=== PATIENT | male | born 1980 | race African-American/Black ===

== ENCOUNTER 2025-04-01 09:47 | Outpatient (REF) | payer OTHER, SELFPAY ==
[2025-04-01 13:29] LABS: MANUAL DIFF FLAG NO
[2025-04-01 13:38] LABS: Hematocrit 43.7 % (42.0-52.0); Hemoglobin 14.6 g/dl (14.0-18.0); Imm Gran Abs Auto 0.00 X10*3/uL (0.00-0.03); Imm Gran Pct Auto 0.0 % (0.0-0.4); Lymphocytes Absolute Auto 1.9 X10*3/uL (1.2-4.9); Mean Corpuscular HGB Conc 33.4 g/dl (31.0-36.0); Mean Corpuscular Hemoglobin 28.5 pg (27.0-33.0); Mean Corpuscular Volume 85.4 fL (80.0-98.0); NRBC Abs Auto 0.000 X10*3/uL (0.0-0.012); NRBC Pct Auto 0.0 /100WBC (0.0-0.2); Platelet Count 234 X10*3/uL (160-400); Red Blood Count 5.12 X10*6/uL (4.60-5.80); White Blood Count 3.7 X10*3/uL (4.8-10.8)
[2025-04-01 14:14] LABS: Alanine Aminotransferase 48 U/L (0-40); Albumin Level 4.7 g/dL (3.5-5.0); Alkaline Phosphatase 93 U/L (39-117); Anion Gap 10 (12-20); Aspartate Amino Transferase 43 U/L (5-37); Blood Urea Nitrogen 11 mg/dL (9-16); Calcium 9.4 mg/dL (8.4-10.2); Carbon Dioxide 27 mmol/L (22-29); Chloride 108 mmol/L (96-108); Cholesterol 199 mg/dL (<200); Estimated Glomerular Filt Rate > 60; HDL Cholesterol 34 mg/dL (>40); Magnesium 2.2 mg/dL (1.6-2.6); Potassium 3.9 mmol/L (3.3-5.1); Sodium 141 mmol/L (135-145); Total Protein 7.4 g/dL (6.5-8.0); Triglycerides 167 mg/dL (<150)
[2025-04-01 14:45] LABS: Folate 10.3 ng/mL (> or = 4.0); Vitamin B12 296 pg/mL (200-900)
[2025-04-01 14:49] LABS: HBS Num1 3.47 mIU/mL (0-7.99); HBsAGNum1 0.39 S/CO (0.00-0.99); HIV Num 1 0.05 S/CO (0.00-0.99); Hepatitis B Surface Antigen Negative (Negative); ~HepC Num1 0.08 S/CO (0.00-0.79); ~Hepatitis B Surface Antibody NONREACTIVE (Nonreactive); ~Hepatitis C Antibody Nonreactive (Nonreactive)
[2025-04-07 00:09] LABS: VITAMIN D (1,25 OH) D3 35 pg/mL; Vit D (1,25-Dihydroxy) Total 35 pg/mL (18-72); Vitamin D (1,25 OH) D2 <8 pg/mL
== END 2025-04-01 09:48 | disposition home or self-care (01) ==
LOC: HO.HKASLDS 09:47
PROVIDERS: PCP Student in an Organized Health Care Education/Training Program; Visit Provider Student in an Organized Health Care Education/Training Program
DX: F52.4 Premature ejaculation (principal); M54.50 Low back pain, unspecified; R10.9 Unspecified abdominal pain; G47.00 Insomnia, unspecified; G89.29 Other chronic pain; E66.3 Overweight; N20.0 Calculus of kidney; N39.0 Urinary tract infection, site not specified; Z68.29 Body mass index [BMI] 29.0-29.9, adult; Z13.1 Encounter for screening for diabetes mellitus
CPT/HCPCS: 36415; 80053; 80061; 82607; 82652; 82746; 83036; 83735; 84443; 85025; 86706; 86803; 87340; 87389; 96127

== ENCOUNTER 2025-04-01 09:47 | Outpatient (AMB) | payer OTHER, SELFPAY ==
--- NOTE | 2025-04-01 09:49 | A.OFFPC_ITS ---
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 Intake Note: new patient- live issues Cafe Aide Required: No Accompanied by: Self / Same As Patient Allergies No Known Allergies Allergy (Verified 04/01/25 09:52) Tobacco use date assessed: 04/01/25 Dental Screening Dental Screen Date: 04/01/25 Did you have a dental visit in the last 12 months?: Yes Did you have a dental problem in the last 6 months where you did not have access to dental care?: No Was dental information given to patient?: Patient has dentist HPI HPI Comments History of Present Illness Details History of Present Illness The patient is a 44-year-old male presenting for evaluation of right-sided back and abdominal pain. Right flank pain: The patient reports intermittent right-sided back pain for over a year, which comes and goes. Two weeks ago, he experienced severe pain in the right lower and right upper quadrant, which prompted a visit to the emergency room. During the ER visit, an ultrasound and bloodwork were performed, with results reportedly being normal, although it was suggested the liver could be the cause. The patient notes that the pain is relieved upon urination and is associated with increased urinary frequency. He also describes the flank pain radiating down to his right buttock. 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 Premature Ejaculation: The patient reports a recent change in sexual function, noting that he ejaculates within five to six minutes of intercourse, which he states was not previously the case. He speculates this may be related to a muscular strain. Surgical History: - The patient denies any history of surg nel. Medications: - The patient denies taking any prescrip tion medications or [id number] supplements. 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 - _ Alcohol Use: He reports drinking alc ohol rarely ( once in a blue roper ). - _ Tobacco Use: He denies smoking. - _ Illicit Substance Use: He denies usi ng illicit drugs. - _ Sleep Habits: Reports poor sleep at night, though sometimes sleeps well during the day. Family History: - Mother: History of cancer, type unknow n. Diagnostic Results: - Previous studies from an ER visit two weeks ago were discussed. - Ultrasound: Reportedly showed no abnor malities. - Blood work: Reportedly normal. Past Medical History - The patient denies any significant pas t medical history. Health Maintenance - Age-appropriate screenings were briefl y discussed, with the conclusion that no specific screenings are due at this time for a 44-year-old. 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 1. Little interest or pleasure in doing things: nearly every day 2. Feeling down, depressed, or hopeless: not at all 3. Trouble falling or staying asleep, or sleeping too much: nearly every day 4. Feeling tired or having little energy: nearly every day 5. Poor appetite or overeating: not at all 6. Feeling bad about yourself - or that you are a failure or have let yourself or your family down: nearly every day 7. Trouble concentrating on things, such as reading the newspaper or watching television: not at all 8. Moving or speaking so slowly that other people could have noticed. Or the opposite - being so fidgety or restless that you have been moving around a lot more than usual: not at all 9. Thoughts that you would be better off or of hurting yourself in some way: not at all Total score: 12 Depression Screening Interpretation: Negative Depression Screening Done: Yes 65151 - PHQ-9 Billing: Yes Source: Developed by Drs. Ge Flores, Lina Rolon, Bryan Anders and colleagues, with an educational jagruti from [employer]. Thrive Questionnaire Date Thrive assessed: 04/01/25 I am a: Patient What is your living situation today?: I have a steady place to live Within the past 12 months, did the food you bought not last and you didn't have the money to get more?: Sometimes True Within the past 12 months, did you worry whether your food would run out before you got money to buy more?: Never true Do you have trouble paying for medicines?: No Do you have trouble getting transportation to medical appointments?: Yes Do you have trouble paying your heating and electricity bill?: Yes Do you have trouble taking care of your child, family member or friend?: Yes Do you have trouble with day-to-day activities such as bathing, preparing meals, shopping, managing finances, etc.?: No Are you currently unemployed and looking for a job?: No Are you interested in more education?: No Please select the resources that you would like help with: Food and Transportation Currently or been in a relationship where the following occur: No concerns reported THRIVE Score: 3 AUDIT C Alcohol Use Questionnaire (AUDIT-C) 1. How often do you have a drink containing alcohol?: 2-4 times a month 2. How many drinks containing alcohol do you have on a typical day when you are drinking?: 1 or 2 3. How often do you have six or more drinks on one occasion?: Less than monthly Total Score: 3 OLIVERIO-7 AMB Questionnaire OLIVERIO-7 Date OLIVERIO - 7 assessed: 04/01/25 Feeling nervous, anxious, or on edge: 0 = Not at all Not being able to stop or control worryin = Not at all Worrying too much about different things: 0 = Not at all Trouble relaxin = Nearly every day Being so restless that it is hard to sit still: 0 = Not at all Becoming easily annoyed or irritable: 0 = Not at all Feeling afraid as if something awful might happen: 0 = Not at all Total OLIVERIO-7 score (0-4 normal; 5-9 mild; 10-14 moderate; 15-21 severe): 3 Source: Developed by Drs. Ge Flores, Lina Rolon, Bryan Anders and colleagues, with an educational jagruti from [employer]. OLIVERIO-7 Assessment Billing OLIVERIO-7 Assessment Tool: OLIVERIO-7 Assessment 26424 Review of Systems Narrative Review of Systems - Constitutional: Reports poor sleep at night. - Genitourinary: Reports right flank pain that is relieved by urination. - Genitourinary: Reports increased urinary frequency. - Genitourinary: Reports premature ejaculation. - Musculoskeletal: Reports right-sided back pain that radiates to the right buttock. - Gastrointestinal: Reports pain in the right upper and lower abdominal quadrants. 10-point ROS reviewed and negative except as noted in HPI Physical exam (Primary Care) Vital Signs: Last Vital Signs Temp 98 F 04/01/25 09:59 Pulse 73 04/01/25 09:59 Resp 18 04/01/25 09:59 BP 116/71 04/01/25 09:59 Pulse Ox 96 04/01/25 09:59 Oxygen Delivery Method Room Air 04/01/25 09:59 BMI result Body Mass Index 29.8 Tobacco/Smoking Status: Tobacco use Status Tobacco use date assessed 04/01/25 04/01/25 10:01 Patient Tobacco Use Status Never used Tobacco 04/01/25 10:01 e-Cigarette/Vaping Use Never Used 04/01/25 10:01 PHQ-9: PHQ-9 Score PHQ-9: Total score 12 04/01/25 10:01 Depression Screening Interpretation: Negative Thrive Assessment: Date of Thrive Assessment Date Thrive assessed 04/01/25 04/01/25 10:01 Currently or been in a relationship where the following occur: No concerns reported Narrative Physical Exam General: Well-appearing, in no acute distress. Vital signs: Within normal limits. HEENT: Normocephalic, atraumatic. PERRLA, EOMI. Conjunctiva clear, sclera anicteric. Oropharynx clear, mucous membranes moist. TMs intact bilaterally. Neck: Supple, no lymphadenopathy, no thyromegaly, no JVD or carotid bruits. Cardiovascular: RRR, normal S1/S2, no murmurs, rubs, or gallops. Peripheral pulses 2+ and symmetric. No edema. Respiratory: Lungs clear to auscultation bilaterally, no wheezes, rales, or rhonchi. Normal effort. Abdomen: Soft, non-tender, non-distended. Normoactive bowel sounds. No hepatosplenomegaly, no masses. MSK: Full range of motion, no joint swelling or deformity. Normal gait. Reports flank pain on the right side, which travels down to the right buttock. Skin: Warm, dry, intact. No rashes, lesions, or pallor. Neuro: Alert and oriented x3. Cranial nerves II-XII intact. Strength 5/5 throughout. Sensation intact. Reflexes 2+ symmetric. Normal coordination and gait. Psych: Appropriate mood and affect. Normal judgment and insight. Coding Level of Care Code New Pt Level 4 (88040) Diagnoses Right flank pain, chronic R10.9; G89.29 Premature ejaculation F52.4 Overweight (BMI 25.0-29.9) E66.3 Additional Codes OLIVERIO-7 Assessment Billing - OLIVERIO-7 Assessment Tool: OLIVERIO-7 Assessment 17191 ([id number]) PHQ-9 - 86349 - PHQ-9 Billing: Yes ([id number]) Assessment & Plan Assessment & Plan (1) Right flank pain, chronic: Code(s): R10.9 - Unspecified abdominal pain; G89.29 - Other chronic pain Category: Medical (2) Premature ejaculation: Code(s): F52.4 - Premature ejaculation Category: Medical (3) Overweight (BMI 25.0-29.9): Code(s): E66.3 - Overweight Category: Medical Plan Consent The patient provided verbal agreement to proceed with the recommended comprehensive lab work and a kidney ultrasound to investigate the cause of his pain. Patient was informed and verbally consented to the use of an ambient scribe for clinic note documentation during this visit. Plan 1. Right Flank Pain - The differential diagnosis includes nephrolithiasis, given the pain is relieved by urination, and musculoskeletal strain, given the patient's occupation. - Ordered comprehensive laboratory studies, including a complete blood count, comprehensive metabolic panel, thyroid studies, B12, folate, vitamin D, lipid panel, hemoglobin A1c, and a urinalysis. - Ordered a retroperitoneal (kidney) ultrasound to evaluate for nephrolithiasis. - Prescribed Ibuprofen 600 mg, to be taken every 8 hours as needed for pain. - Recommended conservative measures including stretching and warm compresses to see if the pain is muscular. - Plan to follow up in two weeks to review the results of the diagnostic workup. Discussion Notes I discussed with the patient that his right-sided pain could be a kidney stone, especially because it improves with urination, but it could also be a muscular issue related to his work. I explained the plan to order comprehensive bloodwork, a urinalysis, and a kidney ultrasound to investigate these possibilities. I recommended he try ibuprofen, warm compresses, and stretching for pain relief. We will follow up in two weeks to discuss all the results. The patient expressed understanding and was agreeable to the plan. Patient Instructions - Take Ibuprofen 600 mg once every 8 hours as you need it for pain. - Try using warm packs and stretching the area to see if that helps with the p ain. - Please go to the lab to have the ordered blood work and kidney ultrasound completed. - Schedule a follow-up appointment in two weeks to go over your test results. Medical Decision Making The patient is a 44-year-old male with a primary complaint of right flank pain, which has been intermittent for over a year and acutely worsened two weeks ago. His symptoms, particularly the relief of pain with urination and increased urinary frequency, are suggestive of a urologic etiology such as nephrolithiasis. However, a musculoskeletal strain is also a strong consideration given his physically demanding job. Despite a reportedly negative emergency room workup including an ultrasound, the persistence and nature of his symptoms warrant a new evaluation. The diagnostic plan includes a retrope ritoneal ultrasound and urinalysis to directly assess for renal or ureteral stones, and comprehensive labs to establish a baseline and screen for other underlying metabolic issues. A therapeutic trial of NSAIDs, along with conservative measures like stretching and heat, will help to both manage symptoms and clarify if there is a muscular component. The patient's other concerns of insomnia and premature ejaculation were noted but are secondary to the workup for his presenting complaint of pain. A follow-up visit in two weeks is planned to review the results and determine the next steps in management. Total Time Statement 30 Total time spent caring for the patient today includes pre-visit chart review, documentation, review of laboratory and diagnostic imaging results, medication reconciliation, medically necessary evaluation, counseling on diagnoses, care coordination, ordering appropriate tests and medications, review of tests performed by other providers, reporting test results to the patient, and communication with other healthcare providers. Orders: Orders US retroperitoneal limited Today N20.0 - Calculus of kidney US bladder Today N39.0 - Urinary tract infection, site not specified Complete Blood Count Auto Diff Today Z13.9 - Encounter for screening, unspecified Comprehensive Met. Panel Today Z13.9 - Encounter for screening, unspecified Hepatitis C Antibody Today Z13.9 - Encounter for screening, unspecified TSH reflex Free T4 Today Z13.9 - Encounter for screening, unspecified Vitamin B12 and Folate Today Z13.9 - Encounter for screening, unspecified Hemoglobin A1c Today Z13.9 - Encounter for screening, unspecified Magnesium Today Z13.9 - Encounter for screening, unspecified Vitamin D 1,25 dihydroxy Today Z13.9 - Encounter for screening, unspecified Hepatitis B Surface Antigen Today Z13.9 - Encounter for screening, unspecified HIV Ab/Ag Today Z13.9 - Encounter for screening, unspecified UA CC w/rflx Micro + Cult Today Z13.9 - Encounter for screening, unspecified Lipid Panel Today Z13.9 - Encounter for screening, unspecified Hepatitis B Surface Antibody Today Z13.9 - Encounter for screening, unspecified
[2025-04-01 09:59] VITALS: BP 116/71; PULSE 73; RESP 18; TEMP 36.6; O2SAT 96; BMI 29.8
--- OUTSIDE RECORDS SUMMARY | 2025-04-01 10:58 | XMS_ITS | Clinical Summary ---
Author Organization [facility] Address [address] [place] [address] Care Team Providers Care Placement Assistant Name Role Phone Unknown, Pcp Primary Care Provider Unavailabl e Allergies No known active allergies Encounters Date Type Department Care Team Description 02/26/2025 10:48 PM EDT - 02/27/2025 5:12 AM EDT Emergency [facility] [address] [place] [phone] Juliette Benz MD Hepatic steatosis (Primary Dx) Discharge Disposition: Home or Self Care from Last 3 Months Social History Tobacco Use Types Packs/Day Years Used Date Smoking Tobacco: Never Assessed Sex and Gender Information Value Date Recorded Sex Assigned at Not on file Legal Sex Male 10:48 PM EDT Gender Identity Not on file Sexual Orientation Not on file Last Filed Vital Signs Vital Sign Reading Time Taken Comments Blood Pressure 110/65 02/27/2025 5:11 AM EDT Pulse 55 02/27/2025 5:11 AM EDT Temperature 36.7 C (98 F) 02/27/2025 5:11 AM EDT Respiratory Rate 20 02/27/2025 5:11 AM EDT Oxygen Saturation 100% 02/27/2025 5:11 AM EDT Inhaled Oxygen Concentration - - Weight 86.1 kg (189 lb 12.8 oz) 025 10:52 PM EDT Height 167.6 cm (5' 6 ) 02/26/2025 10:5 2 PM EDT Body Mass Index 30.63 02/26/2025 10:52 PM EDT Plan of Treatment Health Maintenance Due Date Last Done Comments HEPATITIS C SCREENING 1998 DTAP/TDAP/TD VACCINES (1 - Tdap) 2010 INFLUENZA VACCINE (#1) 2024 COVID-19 IMMUNIZATION (1 - 2 024-25 season) 2025 ZOSTER VACCINE (1 of 2) 2031 RSV IMMUNIZATION (1 - 1-dose 75+ series) 2056 IPV VACCINES Aged Out No longer eligi ble based on patient's age to complete this topic MENINGOCOCCAL B VACCINE Aged Out No l onger eligible based on patient's age to complete this topic PNEUMOCOCCAL VACCINE Aged Out No long er eligible based on patient's age to complete this topic Procedures Procedure Name Priority Date/Time Associated Diagnosis Comments HS-TNI (2 HR WITH 2 HR DELTA) STAT 02/27/2025 4:20 AM EDT LIPASE LEVEL STAT 02/27/2025 2:36 AM EDT HEPATIC FUNCTION PANEL STAT 02/27/2025 2:36 AM EDT HS-TNI BASELINE STAT 02/27/2025 2:36 AM EDT HC AUTO CBC WITH DIFF STAT 02/27/2025 2:36 AM EDT BASIC METABOLIC PANEL STAT 02/27/2025 2:36 AM EDT US ABDOMEN LIMITED (W VASCULAR EVAL IF NEEDED) STAT 02/27/2025 1:44 AM EDT from Last 3 Months Results * hs-TNI (2 hr with 2 hr DELTA) (02/27/2025 4:20 AM EDT) hs-TNI 2 hr 5 3 - 35 ng/L 02/27/2025 5:08 AM EDT [facility] Delta from baseline 1 <7 02/27/2025 5:08 AM EDT [facility] Blood 02/27/2025 4:20 AM EDT 02/27/2025 4:30 AM EDT us Juliette Benz MD LAB BLOOD ORDERABLES Final Resul t Performing Organization Address City/[facility]/ZIP Co de Phone Number [facility] [address] [place], [place] [id number] [place] [address] [place] [address] * hs-TNI baseline (02/27/2025 2:36 AM EDT) hs-TNI baseline 4 3 - 35 ng/L 02/27/2025 3:28 AM EDT [facility] Blood 02/27/2025 2:36 AM EDT 02/27/2025 2:55 AM EDT us Juliette Benz MD LAB BLOOD ORDERABLES Final Resul t Performing Organization Address [facility] Co de Phone Number [facility] [address] [place], [place] [phone] [place] [address] [place] [phone] * (ABNORMAL) Basic Metabolic Panel (02/27/2025 2:36 AM EDT) Glucose 102(H) 67 - 99 MG/DL 02/27/2025 3:28 AM [facility] BUN 11 6 - 24 MG/DL 02/27/2025 3:28 AM [facility] Creat Level 0.96 0.64 - 1.27 MG/DL 02/27/2025 3:28 AM [facility] eGFR 100 >90 mL/min/1.7 3m exp2 02/27/2025 3:28 AM [facility] Comment:Calculated using the CKD-epi 2020 race-free equation. BUN Creatinine Ratio 11 02/27/2025 3:28 AM [facility] Sodium 141 135 - 145 MEQ/L 02/27/2025 3:28 AM [facility] Potassium 4.1 3.6 - 5.1 MEQ/L 02/27/2025 3:28 AM [facility] Chloride 109 98 - 110 MEQ/L 02/27/2025 3:28 AM [facility] CO2 25 20 - 29 MEQ/L 02/27/2025 3:28 AM EDT [facility] Anion Gap 7 3 - 13 02/27/2025 3:28 AM EDT [facility] Calcium 9.5 8.4 - 10.2 MG/DL 02/27/2025 3:28 AM EDT [facility] Blood 02/27/2025 2:36 AM EDT 02/27/2025 2:55 AM EDT us Juliette Benz MD LAB BLOOD ORDERABLES Final Resul t [facility] [address] [place] [address] [place] [phone] * (ABNORMAL) CBC WITH DIFF (02/27/2025 2:36 AM EDT) WBC 3.6(L) 4.2 - 10.0 i06ysy9/L 02/27/2025 2:59 AM EDT [facility] RBC 4.81 4.50 - 5.60 p22zvr61/L 02/27/2025 2:59 AM [facility] Hemoglobin 14.2 13.4 - 16.0 g/dL 02/27/2025 2:59 AM [facility] Hematocrit 41.6 41.2 - 51.0 % 02/27/2025 2:59 AM [facility] MCV 86.5 85.2 - 100.2 fL 02/27/2025 2:[facility] MCH 29.5 27.0 - 32.4 pg 02/27/2025 2:59 AM [facility] MCHC 34.1 29.5 - 34.2 g/dL 02/27/2025 2:59 AM [facility] RDW 12.4 11.8 - 14.4 % 02/27/2025 2:59 AM [facility] Platelets 222 168 - 382 z86scg8/L 02/27/2025 2:59 AM T [facility] MPV 10.2 9.6 - 12.5 fL 02/27/2025 2:59 AM [facility] NRBC % 0.0 -1.0 - 0.0 % 02/27/2025 2:59 AM [facility] NRBC (absolute) 0.0 h22evf7/L 2:59 AM [facility] Immature Granulocytes % 0.0 % 02/27/2025 2:59 AM [facility] Immature Granulocytes (absolute) 0.0 0.0 - 0.1 k26kkl7/L 02/27/2025 2:59 AM [facility] Seg Neutrophil % 26.4 % 02/28/20 25 2:59 AM [facility] Seg Neutrophil (absolute) 1.0(L) 1.9 - 6.7 z98ojg4/L 02/27/2025 2:59 AM [facility] Lymphocyte % 63.9 % 02/27/2025 2:59 AM [facility] Lymphocyte (absolute) 2.3 1.0 - 3.3 i67sbz2/L 02/27/2025 2:59 AM [facility] Monocyte % 5.8 % 02/27/2025 2:59 AM [facility] Monocyte (absolute) 0.2(L) 0.3 - 0.9 e66ihe6/L 02/27/2025 2:59 AM [facility] Eosinophil % 2.5 % 02/27/2025 2:59 AM [facility] Eosinophil (absolute) 0.1 0.0 - 0.4 m01zgh5/L 02/27/2025 2:59 AM [facility] Basophil % 1.4 % 02/27/2025 2:59 AM [facility] Basophil (absolute) 0.1 0.0 - 0.1 w14fex2/L 02/27/2025 2:59 AM [facility] 02/27/2025 2:36 AM EDT 02/27/2025 2:55 AM EDT us Haeyeon Benz MD LAB BLOOD ORDERABLES Final Resul t Performing Organization Address City/[facility]/ZIP Co de Phone Number [facility] [address] [place] [address] [place] [address] * Lipase Level (02/27/2025 2:36 AM EDT) Lipase 17 13 - 55 IU/L 02/27/2025 3:28 AM EDT [facility] Blood 02/27/2025 2:36 AM EDT 02/27/2025 2:55 AM EDT us Juliette Benz MD LAB BLOOD ORDERABLES Final Resul t Performing Organization Address City/[facility] Co de Phone Number [facility] [address] [place] [address] [place] [address] * Hepatic Function Panel (02/27/2025 2:36 AM EDT) Albumin 4.5 3.4 - 5.1 G/DL 02/27/2025 3:28 AM EDT [facility] Bilirubin, Total 0.5 0.1 - 1.2 MG/DL 02/27/2025 3:28 AM [facility] Bilirubin, Direct 0.1 0.0 - 0.4 MG/DL 02/27/2025 3:28 AM T [facility] Alkaline Phosphatase 84 39 - 117 IU/L 02/27/2025 3:28 AM T [facility] Protein, Total 7.1 6.1 - 8.3 G/DL 02/27/2025 3:28 AM EDT [facility] ALT 26 7 - 49 IU/L 02/27/2025 3:28 AM [facility] AST (SGOT) 24 12 - 52 IU/L 02/27/2025 3:28 AM EDT [facility] Blood 02/27/2025 2:36 AM EDT 02/27/2025 2:55 AM EDT us Juliette Benz MD LAB BLOOD ORDERABLES Final Resul t [facility] [address] [place] [id number] [facility] [address] [place] [address] * US: RIGHT Upper Quadrant (02/27/2025 1:44 AM EDT) Anatomical Region Laterality Modality Ultrasound 02/27/2025 1:44 AM EDT Impressions 02/27/2025 4:49 AM EDT IMPRESSION: 1. Hepatic steatosis. 2. No acute sonographic abnormality. RADCAT Grade: RADCAT2: Routine result. Report Created by Duane Costa MD Date Read:02/27/2025 1:50 AM Laura Nunez M.D. has reviewed the report and all the images related to this patient encounter. Electronically signed: 02/27/2025 4:49 AM Laura Nunez M.D. Patient DOS:02/27/2025 1:15 AM Exam:[id number] US ABDOMEN LIMITED (W VASCULAR EVAL IF NEEDED) Contributing Doctor:Radiology Department ([id number]) Narrative 02/27/2025 4:49 AM EDT US ABDOMEN LIMITED (W VASCULAR EVAL IF NEEDED) HISTORY: RUQ pain Patient is 44 years of age. TECHNIQUE: Multiple longitudinal and transverse 2D real time ultrasound images through the right upper quadrant were acquired. COMPARISON: None FINDINGS: Liver: No or minimal limitations in liver visualization. Increased echogenicity of the hepatic parenchyma. No intrahepatic biliary dilatation. Gallbladder: No gallstones. Negative sonographic Kingston's sign. CBD: 2 mm in diameter. Pancreas: Visualized portions are unremarkable. Right Kidney: 9.7 cm in length. No hydronephrosis or renal calculi. Abdominal aorta: Visualized portions are normal for age. Proximal IVC: Visualized portions are unremarkable. Ascites: None. Procedure Note Laura Nunez MD - 02/27/2025 US ABDOMEN LIMITED (W VASCULAR EVAL IF NEEDED) HISTORY: RUQ pain Patient is 44 years of age. TECHNIQUE: Multiple longitudinal and transverse 2D real time ultrasoundimages through the right upper quadrant were acquired. COMPARISON: None FINDINGS: Liver: No or minimal limitations in liver visualization. Increasedechogenicity of the hepatic parenchyma. No intrahepatic biliarydilatation. Gallbladder: No gallstones. Negative sonographic Kingston's sign. CBD: 2 mm in diameter. Pancreas: Visualized portions are unremarkable. Right Kidney: 9.7 cm in length. No hydronephrosis or renal calculi. Abdominal aorta: Visualized portions are normal for age. Proximal IVC: Visualized portions are unremarkable. Ascites: None. IMPRESSION: 1. Hepatic steatosis. 2. No acute sonographic abnormality. RADCAT Grade: RADCAT2: Routine result. Report Created by Duane Costa MD Date Read:02/27/2025 1:50 AM Laura Nunez M.D. has reviewed the report and all the images related tothis patient encounter. Electronically signed: 02/27/2025 4:49 AM Laura Nunez M.D. Patient DOS:02/27/2025 1:15 AM Exam:[id number] US ABDOMEN LIMITED (W VASCULAR EVALIF NEEDED) Contributing Doctor:Radiology Department ([id number]) Juliette Benz MD [facility] ORDERABLES Final Result from Last 3 Months [facility] [id number]) Care Teams Placement Assistant Relationship Specialty Start Date End Date Unknown, Pcp, Unknown Address Unknown [facility], [id number] PCP - General Internal Medicine 02/26/25
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
== END 2025-04-01 10:21 | disposition home or self-care (01) ==
PROVIDERS: Visit Provider Student in an Organized Health Care Education/Training Program
DX: R10.9 Unspecified abdominal pain (principal); G89.29 Other chronic pain; F52.4 Premature ejaculation; E66.3 Overweight

== ENCOUNTER 2025-04-08 11:44 | Outpatient (AMB) | payer OTHER, SELFPAY ==
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
[2025-04-08 11:49] VITALS: BP 119/66; PULSE 93; TEMP 36.9; O2SAT 97; BMI 29.9
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
--- OUTSIDE RECORDS SUMMARY | 2025-04-08 12:33 | XMS_ITS | Clinical Summary ---
Author Organization [facility] Address [address] [place] [address] Care Team Providers Care Gang Saw Operator Name Role Phone Unknown, Pcp Primary Care Provider Unavailabl e Allergies No known active allergies Encounters Date Type Department Care Team Description 02/26/2025 10:48 PM EDT - 02/27/2025 5:12 AM EDT Emergency [facility] [address] [place] [phone] Juliette Benz MD Hepatic steatosis (Primary Dx) [...] - 35 ng/L 02/27/2025 5:08 AM EDT [facility] Delta from baseline 1 <7 02/27/2025 5:08 AM EDT [facility] Blood 02/27/2025 4:20 AM EDT 02/27/2025 4:30 AM EDT us Juliette Benz MD LAB BLOOD ORDERABLES Final Resul t Performing Organization Address City/[facility]/ZIP Co de Phone Number [facility] [address] [place], [place] [id number] [place] [address] [place] [address] * hs-TNI baseline (02/27/2025 2:36 AM EDT) hs-TNI baseline 4 3 - 35 ng/L 02/27/2025 3:28 AM EDT [facility] Blood 02/27/2025 2:36 AM EDT 02/27/2025 2:55 AM EDT us Juliette Benz MD LAB BLOOD ORDERABLES Final Resul t Performing Organization Address [facility] Co de Phone Number [facility] [address] [place], [place] [id number] [place] [address] [place] [id number] * (ABNORMAL) Basic Metabolic Panel (02/27/2025 2:36 AM EDT) Glucose 102(H) 67 - 99 MG/DL 02/27/2025 3:28 AM [facility] BUN 11 6 - 24 MG/DL 02/27/2025 3:28 AM [facility] Creat Level 0.96 0.64 - 1.27 MG/DL 02/27/2025 3:28 AM [facility] eGFR 100 >90 mL/min/1.7 3m exp2 02/27/2025 3:28 AM [facility] Comment:Calculated using the CKD-epi 2020 race-free equation. BUN Creatinine Ratio 11 02/27/2025 3:28 AM [facility] Sodium 141 135 - 145 MEQ/L 02/27/2025 3:28 AM [facility] Potassium 4.1 3.6 - 5.1 MEQ/L 02/27/2025 3:28 AM [facility] Chloride 109 98 - 110 MEQ/L 02/27/2025 3:28 AM [facility] CO2 25 20 - 29 MEQ/L 02/27/2025 3:28 AM EDT [facility] Anion Gap 7 3 - 13 02/27/2025 3:28 AM EDT [facility] Calcium 9.5 8.4 - 10.2 MG/DL 02/27/2025 3:28 AM EDT [facility] Blood 02/27/2025 2:36 AM EDT 02/27/2025 2:55 AM EDT us Juliette Benz MD LAB BLOOD ORDERABLES Final Resul t [facility] [address] [place] [address] [place] [id number] * (ABNORMAL) CBC WITH DIFF (02/27/2025 2:36 AM EDT) WBC 3.6(L) 4.2 - 10.0 b77yet0/L 02/27/2025 2:59 AM EDT [facility] RBC 4.81 4.50 - 5.60 h21tup24/L 02/27/2025 2:59 AM [facility] Hemoglobin 14.2 13.4 - 16.0 g/dL 02/27/2025 2:59 AM [facility] Hematocrit 41.6 41.2 - 51.0 % 02/27/2025 2:59 AM [facility] MCV 86.5 85.2 - 100.2 fL 02/27/[facility]25 [facility] MCH 29.5 27.0 - 32.4 pg 02/27/2025 2:59 AM [facility] MCHC 34.1 29.5 - 34.2 g/dL 02/27/2025 2:59 AM [facility] RDW 12.4 11.8 - 14.4 % 02/27/2025 2:59 AM [facility] Platelets 222 168 - 382 i52lja6/L 02/27/2025 2:59 AM T [facility] MPV 10.2 9.6 - 12.5 fL 02/27/2025 2:59 AM [facility] NRBC % 0.0 -1.0 - 0.0 % 02/27/2025 2:59 AM [facility] NRBC (absolute) 0.0 w40vuv1/L 2:59 AM [facility] Immature Granulocytes % 0.0 % 02/27/2025 2:59 AM [facility] Immature Granulocytes (absolute) 0.0 0.0 - 0.1 s70wkr8/L 02/27/2025 2:59 AM [facility] Seg Neutrophil % 26.4 % 02/28/20 25 2:59 AM [facility] Seg Neutrophil (absolute) 1.0(L) 1.9 - 6.7 d78nul4/L 02/27/2025 2:59 AM [facility] Lymphocyte % 63.9 % 02/27/2025 2:59 AM [facility] Lymphocyte (absolute) 2.3 1.0 - 3.3 m12uyf9/L 02/27/2025 2:59 AM [facility] Monocyte % 5.8 % 02/27/2025 2:59 AM [facility] Monocyte (absolute) 0.2(L) 0.3 - 0.9 y60urh1/L 02/27/2025 2:59 AM [facility] Eosinophil % 2.5 % 02/27/2025 2:59 AM [facility] Eosinophil (absolute) 0.1 0.0 - 0.4 u99jsc9/L 02/27/2025 2:59 AM [facility] Basophil % 1.4 % 02/27/2025 2:59 AM [facility] Basophil (absolute) 0.1 0.0 - 0.1 c93hdk2/L 02/27/2025 2:59 AM [facility] 02/27/2025 2:36 AM EDT 02/27/2025 2:55 AM EDT us Haeyeon Benz MD LAB BLOOD ORDERABLES Final Resul t Performing Organization Address City/[facility]/ZIP Co de Phone Number [facility] [address] [place] [address] [place] [address] * Lipase Level (02/27/2025 2:36 AM EDT) Lipase 17 13 - 55 IU/L 02/27/2025 3:28 AM EDT [facility] Blood 02/27/2025 2:36 AM EDT 02/27/2025 2:55 AM EDT us Juliette Benz MD LAB BLOOD ORDERABLES Final Resul t Performing Organization Address City/[facility] Co de Phone Number [facility] [address] [place] [address] [place] [address] * Hepatic Function Panel (02/27/2025 2:36 AM EDT) Albumin 4.5 3.4 - 5.1 G/DL 02/27/2025 3:28 AM EDT [facility] Bilirubin, Total 0.5 0.1 - 1.2 MG/DL 02/27/2025 3:28 AM [facility] Bilirubin, Direct 0.1 0.0 - 0.4 MG/DL 02/27/2025 3:28 AM T [facility] Alkaline Phosphatase 84 39 - 117 IU/L 02/27/2025 3:28 AM T [facility] Protein, Total 7.1 6.1 - 8.3 G/DL 02/27/2025 3:28 AM EDT [facility] ALT 26 7 - 49 IU/L 02/27/2025 3:28 AM [facility] AST (SGOT) 24 12 - 52 IU/L 02/27/2025 3:28 AM EDT [facility] Blood 02/27/2025 2:36 AM EDT 02/27/2025 2:55 AM EDT us Juliette Benz MD LAB BLOOD ORDERABLES Final Resul t [facility] [address] [place] [id number] [facility] [address] [place] [phone] * US: RIGHT Upper Quadrant (02/27/2025 1:44 [...] Laura Nunez M.D. Patient DOS:02/27/2025 1:15 AM Exam:[id number] US ABDOMEN LIMITED (W VASCULAR EVAL IF NEEDED) Contributing Doctor:Radiology Department ([id number]) Narrative 02/27/2025 4:49 AM EDT US ABDOMEN [...] Laura Nunez M.D. Patient DOS:02/27/2025 1:15 AM Exam:[id number] US ABDOMEN LIMITED (W VASCULAR EVALIF NEEDED) Contributing Doctor:Radiology Department ([id number]) Juliette Benz MD [facility] ORDERABLES Final Result from Last 3 Months Insurance [facility] ( [id number]) Care Teams Gang Saw Operator Relationship Specialty Start Date End Date Unknown, Pcp, Unknown Address Unknown [facility], [id number] PCP - General Internal Medicine 02/26/25
== END 2025-04-08 12:21 | disposition home or self-care (01) ==
LOC: HO.HMCWIS 11:44
PROVIDERS: PCP Student in an Organized Health Care Education/Training Program; Visit Provider Family Medicine
DX: M54.50 Low back pain, unspecified (principal); M79.604 Pain in right leg; K43.9 Ventral hernia without obstruction or gangrene

== ENCOUNTER 2025-04-22 10:36 | Outpatient (REF) | payer OTHER, SELFPAY ==
--- OUTSIDE RECORDS SUMMARY | 2025-04-22 13:30 | XMS_ITS ---
Author Name [facility] Organization Unknown Results Test Name/Text Value Interpretation Date Range Source Delta from baseline 1.0 02/27/2025 - 7 [facility] hs-TNI 2 hr 5.0 ng/L 02/27/2025 3 - 35 [facility] Lipase Level 17.0 IU/L 02/27/2025 13 - 55 [facility] Bili Direct 0.1 MG/DL 02/27/2025 0 - 0.4 [facility] ALT 26.0 IU/L 02/27/2025 7 - 49 [facility] AST 24.0 IU/L 02/27/2025 12 - 52 [facility] Alkaline Phosphatase 84.0 IU/L 02/27/2025 39 - 117 [facility] Bili Total 0.5 MG/DL 02/27/2025 0.1 - 1.2 [facility] Total Protein 7.1 G/DL 02/27/2025 6.1 - 8.3 [facility] Albumin 4.5 G/DL 02/27/2025 3.4 - 5.1 [facility] hs-TNI baseline 4.0 ng/L 02/27/2025 3 - 35 [facility] eGFR 100.0 mL/min/1.73m exp2 02/27/2025 90 - [facility] Creatinine 0.96 MG/DL 02/27/2025 0.64 - 1.27 [facility] BUN Creatinine Ratio 11.0 02/27/2025 [facility] BUN 11.0 MG/DL 02/27/2025 6 - 24 [facility] CO2 25.0 MEQ/L 02/27/2025 20 - 29 [facility] Anion Gap 7.0 02/27/2025 3 - 13 [facility] Glucose 102.0 MG/DL Above high normal 02/27/2025 67 - 99 [facility] CA 9.5 MG/DL 02/27/2025 8.4 - 10.2 [facility] NA 141.0 MEQ/L 02/27/2025 135 - 145 [facility] K Level 4.1 MEQ/L 02/27/2025 3.6 - 5.1 [facility] Chloride 109.0 MEQ/L 02/27/2025 98 - 110 [facility] Eosinophil (absolute) 0.1 z82gyj2/L 02/27/2025 0 - 0.4 [facility] Basophil (percent) 1.4 % 02/27/2025 [facility] Monocyte (percent) 5.8 % 02/27/2025 [facility] NRBC (absolute) 0.0 m18skp5/L 02/27/2025 [facility] HCT 41.6 % 02/27/2025 41.2 - 51 [facility] RBC 4.81 c81ljg76/L 02/27/2025 4.5 - 5.6 [facility] Lymphocyte (percent) 63.9 % 02/27/2025 [facility] Lymphocyte (absolute) 2.3 i75fsk6/L 02/27/2025 1 - 3.3 [facility] Platelet Count 222.0 c09iwa9/L 02/27/2025 168 - 382 [facility] WBC 3.6 p54rqz4/L Below low normal 02/27/2025 4.2 - 10 [facility] RDW 12.4 % 02/27/2025 11.8 - 14.4 [facility] MCV 86.5 fL 02/27/2025 85.2 - 100.2 [facility] Neutrophil (percent) 26.4 % 02/27/2025 [facility] Monocyte (absolute) 0.2 l39ggs8/L Below low normal 0.3 - 0.9 [facility] Immature Granuloctyes (absolute) 0.0 a61jkn7/L 02/27/2025 0 - 0.1 [facility] MCH 29.5 pg 02/27/2025 27 - 32.4 [facility] MCHC 34.1 g/dL 02/27/2025 29.5 - 34.2 [facility] Eosinophil (percent) 2.5 % 02/27/2025 [facility] Basophil (absolute) 0.1 w61qxg6/L 02/27/2025 0 - 0 .1 [facility] HGB 14.2 g/dL 02/27/2025 13.4 - 16 [facility] Neutrophil (absolute) 1.0 q94kcj2/L Below low normal 02/27/2025 1.9 - 6.7 [facility] Immature Granuloctyes (percent) 0.0 % 02/27/2025 [facility] MPV 10.2 fL 02/27/2025 9.6 - 12.5 [facility] NRBC (percent) 0.0 % 02/27/2025 - [facility] PATH REVIEW Normal 09/14/2024 [facility] MA Basophils # Bld Manual 0.0 10 3/uL Normal 09/12/2024 0 - 0.2 [facility] Monocytes NFr Bld Manual 4.0 % Normal 09/12/2024 2 - 12 [facility] Neutrophils NFr Bld Auto 35.0 % Below low normal 09/12/2024 40 - 75 [facility] ANC (MANUAL) # 1.2 10 3/uL Below low normal 09/12/2024 2.2 - 7.5 [facility] Eosinophil NFr Bld Manual 1.0 % Normal 09/12/2024 1 - 5 [facility] Neuts Band NFr Bld Manual 0.0 % Normal 09/12/2024 0 - 10 [facility] Lymphocytes NFr Bld Manual 60.0 % Above high normal 09/12/2024 20 - 46 [facility] Eosinophil # Bld Manual 0.0 10 3/uL Below low normal 09/12/2024 0.1 - 0.9 [facility] Monocytes # Bld Manual 0.1 10 3/uL Normal 09/12/2024 0.1 - 0.9 [facility] Basophils # Bld Auto 0.0 % Normal 09/12/2024 0 - 2 [facility] Lymphocytes # Bld Manual 2.1 10 3/uL Normal 09/12/2024 1 - 4 [facility] RBC # Bld Auto 4.73 10 6/uL Normal 09/12/2024 4.2 - 6.1 [facility] MCV RBC Auto 85.2 fL Normal 09/12/2024 75 - 100 [facility] DAGMAR PMV Bld Auto 8.0 fL Normal 09/12/2024 5 - 15 [facility] MCHC RBC Auto-mCnc 34.6 % Normal 09/12/2024 31 - 37 [facility] WBC # Bld Auto 3.5 10 3/ul Below low normal 09/12/2024 4 - 1 1 [facility] RDW RBC Auto-Rto 41.1 fL Normal 09/12/2024 37 - 51 [facility] Hgb Bld-mCnc 13.9 g/dL Below low normal 09/12/2024 14 - 18 [facility] Hct VFr Bld Auto 40.3 % Below low normal 09/12/2024 42 - 52 [facility] Platelet # Bld Auto 208.0 10 3/uL Normal 09/12/2024 150 - 450 [facility] MCH RBC Qn Auto 29.5 pg Normal 09/12/2024 27 - 35 [facility] TROPONIN I HS <2.3 ng/L Normal 09/12/2024 0 - 15 [facility]IS Bilirub SerPl-mCnc 0.4 mg/dL Normal 09/12/2024 0.2 - 1 [facility] Calcium SerPl-mCnc 9.6 mg/dL Normal 09/12/2024 8.5 - 10.5 [facility] BUN SerPl-mCnc 10.0 mg/dL Normal 09/12/2024 6 - 20 [facility] GFR/BSA pred.non black SerPl MDRD-ArVRat >60.0 ml/min Normal 09/12/2024 - [facility] Anion Gap SerPl-sCnc 5.0 Normal 09/12/2024 3 - 12 [facility] eGLOM FILT RATE AMER >60.0 ml/min Normal 09/12/2024 - [facility] ALT SerPl w/o P-5'-P-cCnc 38.0 U/L Normal 09/12/2024 10 - 60 [facility] CO2 SerPl-sCnc 28.0 mmol/L Normal 09/12/2024 21 - 31 [facility] AST SerPl-cCnc 27.0 U/L Normal 09/12/2024 10 - 42 [facility] Glucose SerPl-mCnc 85.0 mg/dL Normal 09/12/2024 70 - 100 [facility] Chloride SerPl-sCnc 104.0 mmol/L Normal 09/12/2024 101 - 111 [facility] Creat SerPl-mCnc 1.0 mg/dL Normal 09/12/2024 0.6 - 1.2 [facility] Albumin/Glob SerPl-mRto 1.8 Normal 09/12/2024 0.7 - 2.5 [facility] Sodium SerPl-sCnc 137.0 mmol/L Normal 09/12/2024 135 - 14 5 [facility] Potassium SerPl-sCnc 3.9 mmol/L Normal 09/12/2024 3.5 - 4 .9 [facility] Prot SerPl-mCnc 7.0 g/dL Normal 09/12/2024 6.2 - 8.4 [facility] ALP SerPl-cCnc 81.0 U/L Normal 09/12/2024 42 - 121 [facility] Albumin SerPl-mCnc 4.5 g/dL Normal 09/12/2024 3.2 - 5.5 [facility] RBC # Ur Auto <1.0 CELL/HPF Normal 09/11/2024 0 - 3 [facility] Urobilinogen Ur Ql Strip <2.0 Normal 09/11/2024 - 2 [facility] Squamous #/area Ur Auto <1.0 CELL/HPF Normal 09/11/2024 0 - 3 [facility] WBC #/area Ur Auto 1.0 CELL/HPF Normal 09/11/2024 0 - 3 [facility] Sp Gr Ur Strip.auto 1.01 Normal 09/11/2024 1.005 - 1 .03 [facility] pH Ur 6.0 Normal 09/11/2024 5 - 8 [facility] Encounters Encounter Type Encounter Reason Primary Diagnosis Location Date Emergency Hepatic steatosis Hepatic steatosis [facility] 02/26/2025 Emergency R SIDE PAIN CHEST PAIN, UNSPECIFIED [facility] 09/11/2024 Care Team Organization Name Specialty Phone Email Start Date End Da te [facility] 02/27/2025 [facility] NO PCP Primary Care 09/11/2024 [facility] Termed, PROVIDER Primary Care 03/26/202212/17
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
--- OUTSIDE RECORDS SUMMARY | 2025-04-22 13:30 | XMS_ITS | Clinical Summary ---
Author Organization [facility] Address [address] [place] [address] Care Team Providers Care Switchboard Operator Assistant Name Role Phone Unknown, Pcp Primary Care Provider Unavailabl e Allergies No known active allergies Encounters Date Type Department Care Team Description 02/26/2025 10:48 PM EDT - 02/27/2025 5:12 AM EDT Emergency [facility] [address] [place] [phone] Juliette Benz MD Hepatic steatosis (Primary Dx) [...] - 35 ng/L 02/27/2025 5:08 AM EDT [facility] Delta from baseline 1 <7 02/27/2025 5:08 AM EDT [facility] Blood 02/27/2025 4:20 AM EDT 02/27/2025 4:30 AM EDT us Juliette Benz MD LAB BLOOD ORDERABLES Final Resul t Performing Organization Address City/[facility]/ZIP Co de Phone Number [facility] [address] [place], [place] [id number] [place] [address] [place] [address] * hs-TNI baseline (02/27/2025 2:36 AM EDT) hs-TNI baseline 4 3 - 35 ng/L 02/27/2025 3:28 AM EDT [facility] Blood 02/27/2025 2:36 AM EDT 02/27/2025 2:55 AM EDT us Juliette Benz MD LAB BLOOD ORDERABLES Final Resul t Performing Organization Address [facility] Co de Phone Number [facility] [address] [place], [place] [id number] [place] [address] [place] [phone] * (ABNORMAL) Basic Metabolic Panel (02/27/2025 2:36 AM EDT) Glucose 102(H) 67 - 99 MG/DL 02/27/2025 3:28 AM [facility] BUN 11 6 - 24 MG/DL 02/27/2025 3:28 AM [facility] Creat Level 0.96 0.64 - 1.27 MG/DL 02/27/2025 3:28 AM [facility] eGFR 100 >90 mL/min/1.7 3m exp2 02/27/2025 3:28 AM [facility] Comment:Calculated using the CKD-epi 2020 race-free equation. BUN Creatinine Ratio 11 02/27/2025 3:28 AM [facility] Sodium 141 135 - 145 MEQ/L 02/27/2025 3:28 AM [facility] Potassium 4.1 3.6 - 5.1 MEQ/L 02/27/2025 3:28 AM [facility] Chloride 109 98 - 110 MEQ/L 02/27/2025 3:28 AM [facility] CO2 25 20 - 29 MEQ/L 02/27/2025 3:28 AM EDT [facility] Anion Gap 7 3 - 13 02/27/2025 3:28 AM EDT [facility] Calcium 9.5 8.4 - 10.2 MG/DL 02/27/2025 3:28 AM EDT [facility] Blood 02/27/2025 2:36 AM EDT 02/27/2025 2:55 AM EDT us Juliette Benz MD LAB BLOOD ORDERABLES Final Resul t [facility] [address] [place] [address] [place] [id number] * (ABNORMAL) CBC WITH DIFF (02/27/2025 2:36 AM EDT) WBC 3.6(L) 4.2 - 10.0 f57dzc9/L 02/27/2025 2:59 AM EDT [facility] RBC 4.81 4.50 - 5.60 a84tbg65/L 02/27/2025 2:59 AM [facility] Hemoglobin 14.2 13.4 - 16.0 g/dL 02/27/2025 2:59 AM [facility] Hematocrit 41.6 41.2 - 51.0 % 02/27/2025 2:59 AM [facility] MCV 86.5 85.2 - 100.2 fL 02/27/2025 2:59 [facility] MCH 29.5 27.0 - 32.4 pg 02/27/2025 2:59 AM [facility] MCHC 34.1 29.5 - 34.2 g/dL 02/27/2025 2:59 AM [facility] RDW 12.4 11.8 - 14.4 % 02/27/2025 2:59 AM [facility] Platelets 222 168 - 382 m93vqd6/L 02/27/2025 2:59 AM T [facility] MPV 10.2 9.6 - 12.5 fL 02/27/2025 2:59 AM [facility] NRBC % 0.0 -1.0 - 0.0 % 02/27/2025 2:59 AM [facility] NRBC (absolute) 0.0 b82pbl4/L 2:59 AM [facility] Immature Granulocytes % 0.0 % 02/27/2025 2:59 AM [facility] Immature Granulocytes (absolute) 0.0 0.0 - 0.1 k18xak1/L 02/27/2025 2:59 AM [facility] Seg Neutrophil % 26.4 % 02/28/20 25 2:59 AM [facility] Seg Neutrophil (absolute) 1.0(L) 1.9 - 6.7 j39tnc8/L 02/27/2025 2:59 AM [facility] Lymphocyte % 63.9 % 02/27/2025 2:59 AM [facility] Lymphocyte (absolute) 2.3 1.0 - 3.3 e50sox8/L 02/27/2025 2:59 AM [facility] Monocyte % 5.8 % 02/27/2025 2:59 AM [facility] Monocyte (absolute) 0.2(L) 0.3 - 0.9 h12gkn0/L 02/27/2025 2:59 AM [facility] Eosinophil % 2.5 % 02/27/2025 2:59 AM [facility] Eosinophil (absolute) 0.1 0.0 - 0.4 b71nax1/L 02/27/2025 2:59 AM [facility] Basophil % 1.4 % 02/27/2025 2:59 AM [facility] Basophil (absolute) 0.1 0.0 - 0.1 k04uji8/L 02/27/2025 2:59 AM [facility] 02/27/2025 2:36 AM EDT 02/27/2025 2:55 AM EDT us Haeyeon Benz MD LAB BLOOD ORDERABLES Final Resul t Performing Organization Address City/[facility]/ZIP Co de Phone Number [facility] [address] [place] [address] [place] [address] * Lipase Level (02/27/2025 2:36 AM EDT) Lipase 17 13 - 55 IU/L 02/27/2025 3:28 AM EDT [facility] Blood 02/27/2025 2:36 AM EDT 02/27/2025 2:55 AM EDT us Juliette Benz MD LAB BLOOD ORDERABLES Final Resul t Performing Organization Address City/[facility] Co de Phone Number [facility] [address] [place] [address] [place] [address] * Hepatic Function Panel (02/27/2025 2:36 AM EDT) Albumin 4.5 3.4 - 5.1 G/DL 02/27/2025 3:28 AM EDT [facility] Bilirubin, Total 0.5 0.1 - 1.2 MG/DL 02/27/2025 3:28 AM [facility] Bilirubin, Direct 0.1 0.0 - 0.4 MG/DL 02/27/2025 3:28 AM T [facility] Alkaline Phosphatase 84 39 - 117 IU/L 02/27/2025 3:28 AM T [facility] Protein, Total 7.1 6.1 - 8.3 G/DL 02/27/2025 3:28 AM EDT [facility] ALT 26 7 - 49 IU/L 02/27/2025 3:28 AM [facility] AST (SGOT) 24 12 - 52 IU/L 02/27/2025 3:28 AM EDT [facility] Blood 02/27/2025 2:36 AM EDT 02/27/2025 2:55 AM EDT us Juliette Benz MD LAB BLOOD ORDERABLES Final Resul t [facility] [address] [place] [id number] [facility] [address] [place] [phone] * US: RIGHT Upper Quadrant (02/27/2025 1:44 [...] Laura Nunez M.D. Patient DOS:02/27/2025 1:15 AM Exam:[id number] US ABDOMEN LIMITED (W VASCULAR EVAL IF NEEDED) Contributing Doctor:Radiology Department ([id number]) Narrative 02/27/2025 4:49 AM EDT US ABDOMEN [...] Laura Nunez M.D. Patient DOS:02/27/2025 1:15 AM Exam:[id number] US ABDOMEN LIMITED (W VASCULAR EVALIF NEEDED) Contributing Doctor:Radiology Department ([id number]) Juliette Benz MD [facility] ORDERABLES Final Result [facility] Last 3 Months [facility] [id number] Care Teams Switchboard Operator Assistant Relationship Specialty Start Date End Date Unknown, Pcp, Unknown Address Unknown [facility], [id number] PCP - General Internal Medicine 02/26/25
[2025-04-22 13:38] LABS: Appearance Urine Clear; Glucose Urine UA Negative (Negative); PH 5.5 (5.0-9.0); Specific Gravity - Urine <= 1.005 (1.005-1.025); UMIC TRIGGER UACC YES
[2025-04-22 13:47] LABS: UACC Culture Trigger YES
== END 2025-04-22 10:37 | disposition home or self-care (01) ==
LOC: HO.HKASLDS 10:36
PROVIDERS: PCP Student in an Organized Health Care Education/Training Program; Visit Provider Student in an Organized Health Care Education/Training Program
DX: R73.03 Prediabetes (principal); Z13.31 Encounter for screening for depression; Z13.39 Encounter for screening examination for other mental health and behavioral disorders
CPT/HCPCS: 81001; 81003; 87086; 96127

== ENCOUNTER 2025-04-22 10:36 | Outpatient (AMB) | payer OTHER, SELFPAY ==
--- NOTE | 2025-04-22 10:37 | MHC.PC.OV ---
Vital Signs 04/22/25 10:42 Height 5 ft 7 in Weight 188 lb 4 oz BMI 29.5 BP 120/58 L Blood Pressure Location Rt brachial Position Sitting Respiration 18 Pulse 77 Pulse Source Pulse Oximeter Temp 97.7 F Temp Source Oral Pulse Oximetry (%) 97 Oxygen Delivery Method Room Air Intake Visit Reasons: 2 wk - lab review Intake Note: Patient present for lab review. Glaze Supervisor Required: No Accompanied by: Self / Same As Patient Allergies No Known Allergies Allergy (Verified 04/22/25 10:40) Medication List - Last Reconciled 04/22/25 by Yinka Paz MD cyclobenzaprine 5 mg PO BEDTIME PRN mecobalamin (vitamin B12) 1,000 mcg sublingual BEDTIME naproxen 500 mg PO Q12H PRN Tobacco use date assessed: 04/01/25 Dental Screening Dental Screen Date: 04/01/25 HPI HPI Comments History of Present Illness Details History of Present Illness The patient is a 44 year old male presenting with a review of recent laboratory results. Prediabetes: Recent lab results revealed a hemoglobin A1c of 5.9, placing the patient in the prediabetes range. Dyslipidemia and Elevated Liver Enzymes: The patient's lab results show elevated AST and ALT levels, elevated triglycerides, elevated bad cholesterol, and low good cholesterol. Vitamin B12 Deficiency: The patient was found to have a low vitamin B12 level of 296. He reports sometimes experiencing numbness in his feet. Pain and Dysuria evaluation: The patient presented to a walk-in clinic last week with significant burning and pain. He reports that ibuprofen was not effective, and though he was given a stronger medication, he continues to experience some pain in the same area. He denies burning with urination. Medications: - Ibuprofen: recently taken for pain, reported as ineffective. - Unspecified stronger pain medication: prescribed at a recent walk-in clinic visit. Social History: - Nutritional Intake: The patient's diet is noted to include a high intake of carbohydrates and sugars, contributing to an elevated hemoglobin A1c. Diagnostic Results: - Complete Blood Count: White blood cell and red blood cell counts are normal. - Hemoglobin A1c: 5.9, in the prediabetes range. - Liver Function Tests: AST and ALT are elevated. - Lipid Panel: Shows elevated triglycerides, elevated bad cholesterol, and low good cholesterol. - Vitamin B12: 296. Past Medical History - Attended a walk-in clinic last week for severe burning and pain, where he was prescribed medication. Health Maintenance - Discussed dietary modifications, specifically reducing carbohydrates and sugars, to manage prediabetes. - A bladder and kidney ultrasound is pending. [facility] Medical History (Updated 04/22/25 @ 12:56 by Yinka Paz MD) Vitamin B12 deficiency Dyslipidemia Prediabetes Elevated liver enzymes Overweight (BMI 25.0-29.9) Premature ejaculation Right flank pain, chronic Family History Mother Cancer Social History (Updated 04/22/25 @ 10:41 by Radu Henson CMA) Housing: House Alcohol intake: current Comment: ocasionally Patient Tobacco Use Status: Never used Tobacco e-Cigarette/Vaping Use: Never Used Use of substances other than those prescribed or required for medical reasons: No service: No Current occupational status: employed 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 1. Little interest or pleasure in doing things: nearly every day 2. Feeling down, depressed, or hopeless: not at all 3. Trouble falling or staying asleep, or sleeping too much: nearly every day 4. Feeling tired or having little energy: nearly every day 5. Poor appetite or overeating: not at all 6. Feeling bad about yourself - or that you are a failure or have let yourself or your family down: nearly every day 7. Trouble concentrating on things, such as reading the newspaper or watching television: several days 8. Moving or speaking so slowly that other people could have noticed. Or the opposite - being so fidgety or restless that you have been moving around a lot more than usual: not at all 9. Thoughts that you would be better off or of hurting yourself in some way: not at all Total score: 13 Depression Screening Interpretation: Negative Depression Screening Done: Yes 07404 - PHQ-9 Billing: Yes Source: Developed by Drs. Ge Flores, Lina Rolon, Bryan Anders and colleagues, with an educational jagruti from [employer]. Thrive Questionnaire Date Thrive assessed: 04/01/25 I am a: Patient What is your living situation today?: I choose not to answer this question Within the past 12 months, did the food you bought not last and you didn't have the money to get more?: Sometimes True Within the past 12 months, did you worry whether your food would run out before you got money to buy more?: Sometimes True Do you have trouble paying for medicines?: Yes Do you have trouble getting transportation to medical appointments?: No Do you have trouble paying your heating and electricity bill?: Yes Do you have trouble taking care of your child, family member or friend?: Yes Are you currently unemployed and looking for a job?: No Are you interested in more education?: Yes Please select the resources that you would like help with: Housing/[facility] Currently or been in a relationship where the following occur: No concerns reported THRIVE Score: 3 AUDIT C Alcohol Use Questionnaire (AUDIT-C) 1. How often do you have a drink containing alcohol?: Monthly or less 2. How many drinks containing alcohol do you have on a typical day when you are drinking?: 1 or 2 3. How often do you have six or more drinks on one occasion?: Monthly Total Score: 3 OLIVERIO-7 AMB Questionnaire OLIVERIO-7 Date OLIVERIO - 7 assessed: 04/01/25 Feeling nervous, anxious, or on edge: 0 = Not at all Not being able to stop or control worryin = Several days Worrying too much about different things: 1 = Several days Trouble relaxin = Several days Being so restless that it is hard to sit still: 0 = Not at all Becoming easily annoyed or irritable: 0 = Not at all Feeling afraid as if something awful might happen: 0 = Not at all Total OLIVERIO-7 score (0-4 normal; 5-9 mild; 10-14 moderate; 15-21 severe): 3 Source: Developed by Drs. Ge Flores, Lina Rolon, Bryan Anders and colleagues, with an educational jagruti from [employer]. OLIVERIO-7 Assessment Billing OLIVERIO-7 Assessment Tool: OLIVERIO-7 Assessment 01698 Review of Systems Narrative Review of Systems - Neurological: Reports occasional numbness in the feet. - Genitourinary: Denies burning on urination. - General: Reports a history of burning pain in an unspecified location, which is still present to some degree. 10-point ROS reviewed and negative except as noted in HPI Physical exam (Primary Care) Vital Signs: Last Vital Signs Temp 97.7 F 04/22/25 10:42 Pulse 77 04/22/25 10:42 Resp 18 04/22/25 10:42 BP 120/58 L 04/22/25 10:42 Pulse Ox 97 04/22/25 10:42 Oxygen Delivery Method Room Air 04/22/25 10:42 BMI result Body Mass Index 29.5 Tobacco/Smoking Status: Tobacco use Status Tobacco use date assessed 04/01/25 04/22/25 10:42 Patient Tobacco Use Status Never used Tobacco 04/22/25 10:42 e-Cigarette/Vaping Use Never Used 04/22/25 10:42 PHQ-9: PHQ-9 Score PHQ-9: Total score 12 04/22/25 10:42 Depression Screening Interpretation: Negative Thrive Assessment: Date of Thrive Assessment Date Thrive assessed 04/01/25 04/22/25 10:42 Currently or been in a relationship where the following occur: No concerns reported Narrative Physical Exam General: Well-appearing, in no acute distress. Vital signs: Within normal limits. HEENT: Normocephalic, atraumatic. PERRLA, EOMI. Conjunctiva clear, sclera anicteric. Oropharynx clear, mucous membranes moist. TMs intact bilaterally. Neck: Supple, no lymphadenopathy, no thyromegaly, no JVD or carotid bruits. Cardiovascular: RRR, normal S1/S2, no murmurs, rubs, or gallops. Peripheral pulses 2+ and symmetric. No edema. Respiratory: Lungs clear to auscultation bilaterally, no wheezes, rales, or rhonchi. Normal effort. Abdomen: Soft, non-tender, non-distended. Normoactive bowel sounds. No hepatosplenomegaly, no masses. MSK: Full range of motion, no joint swelling or deformity. Normal gait. Skin: Warm, dry, intact. No rashes, lesions, or pallor. Neuro: Alert and oriented x3. Cranial nerves II-XII intact. Strength 5/5 throughout. Sensation intact. Reflexes 2+ symmetric. Normal coordination and gait. Psych: Appropriate mood and affect. Normal judgment and insight. Coding Level of Care Code Est Pt Level 3 (45206) Diagnoses Elevated liver enzymes R74.8 Prediabetes R73.03 Dyslipidemia E78.5 Vitamin B12 deficiency E53.8 Right flank pain, chronic R10.9; G89.29 Additional Codes OLIVERIO-7 Assessment Billing - OLIVERIO-7 Assessment Tool: OLIVERIO-7 Assessment 43004 ([id number]) PHQ-9 - 31741 - PHQ-9 Billing: Yes ([id number]) Assessment & Plan Assessment & Plan (1) Elevated liver enzymes: Code(s): R74.8 - Abnormal levels of other serum enzymes Category: Medical (2) Prediabetes: Code(s): R73.03 - Prediabetes Category: Medical (3) Dyslipidemia: Code(s): E78.5 - Hyperlipidemia, unspecified Category: Medical (4) Vitamin B12 deficiency: Code(s): E53.8 - Deficiency of other specified B group vitamins Category: Medical (5) Right flank pain, chronic: Code(s): R10.9 - Unspecified abdominal pain; G89.29 - Other chronic pain Category: Medical Plan Consent The patient was informed of the plan for dietary referral, liver ultrasound, vitamin B12 supplementation, and further urological imaging, and he verbally agreed to the proposed management. Patient was informed and verbally consented to the use of an ambient scribe for clinic note documentation during this visit. Plan 1. Prediabetes - Refer to a registered dietitian for nutritional counseling to improve dietary habits. - Repeat labs in three months to monitor hemoglobin A1c. 2. Dyslipidemia And Elevated Liver Enzymes - An ultrasound of the liver will be ordered to assess for structural changes or fatty liver disease. - Refer to a registered dietitian to address diet-related cholesterol issues. - Repeat labs, including liver function tests, in three months. 3. Vitamin B12 Deficiency - Prescribed vitamin B12 supplement to be taken once daily at night. - Repeat labs in three months to recheck vitamin B12 level. 4. Pain And Genitourinary Evaluation - A urinalysis will be performed today to investigate for potential kidney-related issues. - Provide a referral for a bladder and kidney ultrasound to be completed as soon as possible, rather than waiting for the scheduled May appointment. Discussion Notes I reviewed the patient's recent lab results with him, highlighting several concerns. I explained that his hemoglobin A1c of 5.9 is in the prediabetes range and is influenced by sugar and carbohydrate intake. I also discussed his elevated liver enzymes (AST/ALT), which are likely related to dyslipidemia, and explained how cholesterol can be stored in the liver, causing it to become fatty. Furthermore, I noted his low vitamin B12 level of 296 and explained that a deficiency can cause symptoms like tiredness, weakness, and the numbness he reports in his feet. We also addressed his recent visit to a walk-in clinic for burning pain, and I stressed the importance of obtaining a urine sample today to rule out kidney-related issues, as one was not collected previously. The proposed plan includes a referral to a registered dietitian, an ultrasound of the liver, vitamin B12 supplementation, and a urinalysis. The patient also agreed to proceed with a bladder and kidney ultrasound sooner than his scheduled May appointment, and I will provide the necessary referral. I advised that we will repeat his labs in three months to monitor his progress. Patient Instructions - Follow up with a registered dietitian to learn how to improve your diet. - An order will be placed for you to get an ultrasound (sonogram) of your liver. - A prescription for Vitamin B12 has been sent to your pharmacy. Take one pill every night. - You will be given a form to get an ultrasound of your bladder and kidneys done sooner than your May appointment. - Please provide a urine sample before you leave today. - You will need to have your blood work repeated in three months. Medical Decision Making The patient is a 44-year-old male here for a review of abnormal lab results. His hemoglobin A1c of 5.9 is in the prediabetic range, necessitating lifestyle and dietary intervention; a referral to a dietitian is appropriate for this. The constellation of elevated AST/ALT, elevated triglycerides, high bad cholesterol, and low good cholesterol is highly suggestive of non-alcoholic fatty liver disease (NAFLD). An ultrasound of the liver is warranted to assess for steatosis and any structural changes. His vitamin B12 level is low at 296, which can explain his reported symptom of numbness in the feet. I will initiate supplementation to prevent further decline and alleviate symptoms. The patient's recent visit to a walk-in clinic for burning pain, where a urinalysis was not performed, requires further investigation. Collecting a urine sample today and proceeding with the planned kidney and bladder ultrasound are crucial to rule out a genitourinary etiology. Follow-up labs in three months will allow for monitoring of his A1c, liver enzymes, and B12 levels in response to these interventions. Total Time Statement 20 min Total time spent caring for the patient today includes pre-visit chart review, documentation, review of laboratory and diagnostic imaging results, medication reconciliation, medically necessary evaluation, counseling on diagnoses, care coordination, ordering appropriate tests and medications, review of tests performed by other providers, reporting test results to the patient, and communication with other healthcare providers. Orders: Orders US abdomen limited Today R74.8 - Abnormal levels of other serum enzymes Referrals Nurse Navigator Referral E53.8 - Deficiency of other specified B group vitamins, E78.5 - Hyperlipidemia, unspecified, R73.03 - Prediabetes Medications: New mecobalamin (vitamin B12) place tablet under tongue and allow to dissolve for at least30 secs before swallowing 1,000 mcg sublingual BEDTIME 90 tabs 0RF
[2025-04-22 10:42] VITALS: BP 120/58; PULSE 77; RESP 18; TEMP 36.5; O2SAT 97; BMI 29.5
== END 2025-04-22 10:58 | disposition home or self-care (01) ==
LOC: HO.HMCFMS 10:37
PROVIDERS: PCP Student in an Organized Health Care Education/Training Program; Visit Provider Student in an Organized Health Care Education/Training Program
DX: R74.8 Abnormal levels of other serum enzymes (principal); R73.03 Prediabetes; E78.5 Hyperlipidemia, unspecified; E53.8 Deficiency of other specified B group vitamins; R10.9 Unspecified abdominal pain; G89.29 Other chronic pain